=== PATIENT | male | born 1950 | race Caucasian/White ===

== ENCOUNTER 2020-09-10 08:50 | Day surgery (SDC) | payer OTHER ==
[~2020-09-10] VITALS: Ht 170.2 cm; Wt 104.5 kg
[~2020-09-10 08:50] MED LIST: AMLODIPINE BESY10 MG PO; ASPIRIN EC81 MG PO; AVAPRO300 MG PO; CENTRUM SILVER1 EAC6 PO; CHLORTHALIDONE25 MG PO; CLONIDINE HCL0.1 MG PO; CO Q-10300 MG PO; DEPO-TESTO200 MG/1 M IM; GABAPENTIN100 MG PO; GARLIC OIL1000 MG PO; LIPITOR40 MG PO; NABUMETONE750 MG PO; OMEGA 3 1,0001 EACH PO; POTASSIUM CHLO20 ME1 PO; PRILOSEC OTC20 MG PO; PROBIOTIC1 EAC3 PO; SUPER B MAXI C0.4 MG PO; TURMERIC COMPL1 EACH PO; VITAMIN B12-FO1 EACH PO; [UNRECOGNIZED DRUG - OTHER]; [UNRECOGNIZED DRUG - OTHER] PO
[2020-09-10] MEDS ORDERED: HYDROCODON-ACE1 EA11 PO (12:57)
[2020-09-10] MEDS ORDERED: CELECOXIB200 MG PO (12:57)
--- NOTE | 2020-09-10 13:27 | NUR ---
09/10/20 1327 Blanquita Pruitt 1248 PT ARRIVED IN PACU NON RESPONSIVE TO NOXIOUS STIMULI WITH OPA IN PLACE. 1257 PT REACTIVE. OPA REMOVED. 1300 CRYO CUFF PLACED ON R SHOULDER. NO C/O'S. 1315 TAKING SIPS OF WATER. 1325 TO DS. REPORT GIVEN TO BALA.
--- NOTE | 2020-09-10 13:32 | NUR ---
1130 PT BACK TO ROOM FROM PACU AWAKE AND ALERT DENIES PAIN AND NAUSEA. AT BEDSIDE. PT EATING CRACKERS AND JELLO, DRINKING WATER TOLERATES WELL. CRYO CUFF EXPAINED TO HIS SHE VOICED UNDERSTANDING. HE CAN FEEL HIS RT HAND BUT LESS FEELING AT THE ELBOW.
--- NOTE | 2020-09-10 14:36 | NUR ---
1200 PT EATING SOUP AND SANDWITCH TOLERATES WELL. DISCHARGE INSTRUCTIONS GIVEN TO PT AND HIS BOTH VOICED UNDERSTANDING.
--- NOTE | 2020-09-10 15:06 | NUR ---
1430 PT REPORTS READINESS TO GO HOME, HE IS ABLE TO MOVE FINGERS ON RT HAND AND IS ABLE TO FEEL TOUCH, CAP REFILL LESS THAN 1 SECOND, HAND WARM AND PINK, PT REPORTS THE REST OF HIS ARM IS STILL NUMB.
--- NOTE | 2020-09-10 15:17 | NUR ---
1966 LATE ENTERY: PT DID NOT VOID BEFORE GOING, GOT VERBAL OK FROM TO DR GONZALEZ STATING HE CAN GO HOME WITHOUT VOIDING.
--- NOTE | 2020-09-12 08:51 | OR ---
[facility] [address] [place], [place] [address] Signed DATE OF OPERATION: 09/10/2020 SURGEON: Kathe Henry MD PREOPERATIVE DIAGNOSES: 1. Rotator cuff tear, right shoulder. 2. Large lipoma right shoulder. POSTOPERATIVE DIAGNOSES: 1. Rotator cuff tear, right shoulder. 2. Large lipoma right shoulder. PROCEDURES PERFORMED: 1. Right shoulder arthroscopy with rotator cuff repair. 2. Excision of lipoma. RETAIL MANAGER: None. ANESTHESIA: General. BLOOD LOSS: 75 mL. SPECIMEN: The lipomatous mass was sent to pathology. IMPLANTS: Two 4.75 SwiveLock anchors. BRIEF HISTORY: Malika is a 70-year-old gentleman with a large lump on his shoulder and pain with any kind of activity in addition to weakness. Risks and benefits of operative treatment were discussed with him. He elected to proceed. DESCRIPTION OF PROCEDURE: Once consent was obtained, he was taken to the operating room. After adequate anesthesia, he was placed in a beach chair position, all downside pressure points were well padded. The shoulder was prepped and draped in a standard sterile fashion. The Electronically Signed By: KATHE HENRY MD 09/12/20 0851 PATIENT NAME: MALIKA PONCE OPERATIVE REPORT DATE OF : 52 REPORT #: [id number] PHYSICIAN: KATHE HENRY MD PCP: BO GUEVARA PA-C REPORT IS CONFIDENTIAL AND NOT TO BE RELEASED WITHOUT AUTHORIZATION [facility] [address] [place], [place] [address] Signed shoulder was injected with 15 mL 0.25% Marcaine with epinephrine as was subacromial space. The lipoma was somewhat in the way in terms of the anterior lateral portal, so I elected to remove the lipoma first. A 2-inch incision was made anteriorly over the lipomatous mass. This was taken through skin and subcutaneous tissue. There was a thin layer of deltoid over the mass and this was split bluntly. The mass was readily identified and under finger dissection was loosened from the surrounding area with tissue. It was then easily removed with the exception of the inferior portion, which was fairly well attached to the periosteum. We removed the mass and rongeured the bone where this was attached. The wound was copiously irrigated with antibiotic solution. The deltoid was closed with 2-0 Stratafix, the subcutaneous tissue with 2-0 Stratafix, and the skin with 3-0 Monocryl. Attention was then turned to the shoulder and posterior portal was then established and the scope was placed in the shoulder. The anterior portal was then established under an outside-in technique. The biceps was noted to be frayed and flattened, but otherwise intact. The labrum and biceps attachment were intact. Glenohumeral surfaces were intact. There were actually 2 separate tears in the rotator cuff with an intervening 3 or 4 mm piece of tissue. The scope was then withdrawn, placed in subacromial space and the bursa was removed to allow visualization. Once the tear was identified, it was cleaned up and then intervening tissue was removed. The cuff tear was mobilized and easily reducible. The bone of the tuberosity was then cleared of soft tissue and was debrided slightly to decorticate and create a bleeding surface. Two fiber tapes were placed in inverted mattress configuration through the rotator cuff and placed through separate anchors in the tuberosity about 5 mm apart. This reduced the cuff tear to the tuberosity with good stability. The suture ends were cut. The scope was withdrawn. All portals were closed with 3-0 Monocryl and Steri-Strips were applied to all wounds. The wounds were dressed with Allevyn dressing and op sites. He was awakened, taken to the recovery room in satisfactory condition. All sponge, needle, and instrument counts were correct. Kathe Henry MD BA/MODL /[id number] Copies: Electronically Signed By: KATHE HENRY MD 09/12/20 0851 PATIENT NAME: MALIKA PONCE OPERATIVE REPORT DATE OF : 52 REPORT #: [id number] PHYSICIAN: KATHE HENRY MD PCP: BO GUEVARA PA-C REPORT IS CONFIDENTIAL AND NOT TO BE RELEASED WITHOUT AUTHORIZATION [address] [address] Signed ~ Electronically Signed By: KATHE HENRY MD 09/12/20 0851 PATIENT NAME: MALIKA PONCE IRAJ OPERATIVE REPORT DATE OF : 52 REPORT #: [id number] PHYSICIAN: KATHE HENRY MD PCP: BO GUEVARA PA-C REPORT IS CONFIDENTIAL AND NOT TO BE RELEASED WITHOUT AUTHORIZATION
--- NOTE | 2020-09-12 15:40 | PATH ---
[facility] [address] [place], [place] [address] Signed SPECIMEN(S): A RIGHT SHOULDER SPECIMEN SOURCE: A. RIGHT SHOULDER CLINICAL HISTORY: Rotator cuff tear and lipoma FINAL PATHOLOGIC DIAGNOSIS: Soft tissue, right shoulder, excision: - Lobules of mature fibroadipose tissue, consistent with lipoma. NAL:cml:C2NR MICROSCOPIC EXAMINATION: Histologic sections of all submitted blocks are examined by light microscopy. These findings, together with the gross examination, support the pathologic diagnosis. GROSS DESCRIPTION: The specimen, labeled "Malika Ponce," and designated on the requisition "lipoma right shoulder," is received in formalin and consists of a 49 gram portion of yellow-monroy adipose tissue that is 8.6 x 6.4 x 2.1 cm. The specimen is partially surfaced by a transparent membranous tissue. The tissue is inked blue and serially sectioned to reveal a pale yellow homogeneous cut surface. No areas of hemorrhage or necrosis are grossly identified. Radio Board Operator sections are submitted in cassette (A1-A5). FB (under the direct supervision of a pathologist) The Gross Description was prepared using a voice recognition system. The report was reviewed for accuracy; however, sound-alike word errors, addition and/or deletions may occur. If there is any question about this report, please contact Client Services. PERFORMING LABORATORY: The technical component was performed by [employer] [facility], [address] [place] [id number] (Steam Roller Operator: Clarice Nichole MD; CLIA# [id number]). [facility], [address] [address] (CLIA# [id number]). Diagnostician: Neha Cowart MD PATIENT NAME: MALIKA PONCE PATHOLOGY DATE OF : 52 REPORT #: [id number] PHYSICIAN: RAFAEL PATHOLOGY PCP: BO GUEVARA PA-C REPORT IS CONFIDENTIAL AND NOT TO BE RELEASED WITHOUT AUTHORIZATION [address] [address] Signed Pathologist Electronically Signed 09/12/2020 Copies: ~ PATIENT NAME: MALIKA PONCE PATHOLOGY DATE OF : 52 REPORT #: [id number] PHYSICIAN: RAFAEL PATHOLOGY PCP: BO GUEVARA PA-C REPORT IS CONFIDENTIAL AND NOT TO BE RELEASED WITHOUT AUTHORIZATION
== END 2020-09-10 14:50 | disposition home or self-care (01) ==
LOC: DS 08:50
PROVIDERS: ATTEND Specialist
PROC: 0LQ14ZZ Repair Right Shoulder Tendon, Percutaneous Endoscopic Approach (ICD-10-PCS; principal; 2020-09-10 11:30)
DX: M75.101 Unspecified rotator cuff tear or rupture of right shoulder, not specified as traumatic (principal); D17.79 Benign lipomatous neoplasm of other sites; G89.18 Other acute postprocedural pain; Z88.7 Allergy status to serum and vaccine; I10 Essential (primary) hypertension; G47.33 Obstructive sleep apnea (adult) (pediatric); K21.9 Gastro-esophageal reflux disease without esophagitis; Z87.891 Personal history of nicotine dependence
CPT/HCPCS: 00450; 64415; 76942; C1713; J0690; J1100; J1885; J2001; J2250; J2405; J2704; J2795; J3010

== ENCOUNTER 2023-06-07 19:38 | Emergency (ER) | payer MEDICARE, OTHER ==
[~2023-06-07] VITALS: Ht 170.2 cm; Wt 104.3 kg
[~2023-06-07 19:38] MED LIST changes: +CELECOXIB200 MG PO; +GABAPENTIN300 MG PO; +HEALTHYLAX17 GM PO; +HYDROCODON-ACE1 EA11 PO; +LABETALOL HCL300 MG PO; +OXYCONTIN10 MG PO; +XARELTO10 MG PO
[2023-06-07 20:10] LABS: BASOPHILS 0.3 % (0-2); EOSINOPHILS 3.3 % (0-6); HEMATOCRIT 41.1 % (35.0-50.0); HEMOGLOBIN 14.7 g/dL (12.0-18.0); LYMPHOCYTES 15.2 % (24-44); MCH 33.1 (27-36); MCHC 35.7 g/dl (30-36); MCV 92.7 fl (81-99); MONOCYTES 6.4 % (0-12); NEUTROPHILS 74.8 % (39-80); PLATELET COUNT 248 K/uL (140-440); RBC 4.44 M/ul (4.3-5.7); RDW 12.9 (10.5-15.0)
[2023-06-07] MEDS ORDERED: FLOMAX0.4 MG PO (20:27)
[2023-06-07 20:41] LABS: ALBUMIN 3.8 g/dL (3.4-5.0); ALBUMIN/GLOBULIN RATIO 1.27 (1.1-2.4); ANION GAP 16.5 (7-21); BILIRUBIN, TOTAL 0.8 ng/dL (0.2-1.0); BUN/CREATININE RATIO 11.11 (6.0-28.6); CALCIUM 8.8 mg/dL (8.5-10.1); CREATININE, SERUM 0.81 mg/dL (0.70-1.30); POTASSIUM 3.5 mmol/L (3.5-5.1); PROTEIN, TOTAL 6.8 g/dL (6.4-8.2)
[2023-06-07 20:45] LABS: INFLUENZA B NAA NEGATIVE (NEGATIVE); RESPIRATORY SYNCYTIAL VIR NAA NEGATIVE (NEGATIVE)
[2023-06-07 22:28] VITALS: BP 149/89
== END 2023-06-07 22:35 | disposition home or self-care (01) ==
LOC: ED 19:38
PROVIDERS: Family Medicine
DX: J40 Bronchitis, not specified as acute or chronic (principal); I71.43 Infrarenal abdominal aortic aneurysm, without rupture; Z20.822 Contact with and (suspected) exposure to COVID-19; Z87.891 Personal history of nicotine dependence; Z88.7 Allergy status to serum and vaccine; Z88.8 Allergy status to other drugs, medicaments and biological substances; Z79.899 Other long term (current) drug therapy
CPT/HCPCS: 36415; 70491; 71250; 80053; 83880; 84484; 85025; 85379; 87502; J2930; Q9967; U0002

== ENCOUNTER 2023-12-31 07:05 | Day surgery (SDC) | payer MEDICARE, OTHER ==
[2023-12-23 11:08] VITALS: BP 123/72
[~2023-12-31] VITALS: Ht 170.2 cm; Wt 103.2 kg
[~2023-12-31 07:05] MED LIST changes: +BRAIN MIGHT-DH1 EACH PO; +CEFAZOLIN SODIUM 2 GM/20 ML SYR IV SCH; +FLOMAX0.4 MG PO; +IBLOOD GLUCOSE TEST STRIP 1 EA TEST VI PRN; +LACTATED RINGER'S 1,000 ML IV SCH; +LIDOCAINE HCL 1% 5 ML SDV INJ ONE; +MIDAZOLAM HCL 5 MG/5 ML VIAL IV PRN; +SENIOR TABS1 EACH PO; +fentaNYL citrate 100 MCG/2 ML VIAL IV PRN
[2023-12-31 07:19] VITALS: BP 120/57
--- NOTE | 2023-12-31 07:30 | NUR ---
PT NOT AVAILABLE FOR VISIT. PROVIDED PRAYER.
[2023-12-31] MEDS ORDERED: LIDOCAINE HCL 2% 5 ML SDV ONE (07:55)
[2023-12-31] MEDS ORDERED: propofoL 200 MG/20 ML VIAL ONE ×2 (07:55→08:15)
--- NOTE | 2023-12-31 08:40 | NUR ---
12/31/23 0840 Mayur Byers 0831: PT ARRIVED TO PACU VIA STRETCHER. REPORT TAKEN FROM EM MCKENNA. PT NON AROUSABLE AT THIS TIME. PT ON 2L NC WITH SATS IN THE MID 90'.S. 0835: PT REMAINS NON AROUSABLE AND ON 2L NC AT THIS TIME. 0840: MD AT BEDSIDE.
--- NOTE | 2023-12-31 09:34 | OR ---
[facility] [address] [place], [place] [address] Signed DATE OF OPERATION: 12/31/2023 SURGEON: Jimmy Meier MD PREOPERATIVE DIAGNOSIS: Screening. POSTOPERATIVE DIAGNOSES: 1. 7 mm polyp distal right colon. 2. Minimal internal hemorrhoids. PROCEDURE: Colonoscopy with hot biopsy. ESTIMATED BLOOD LOSS: None. INDICATIONS: Malika is a 73-year-old gentleman, asked to see me for a followup screening colonoscopy. I helped him in 2011 at the age of 61 with his initial screening colonoscopy. This was unremarkable. He currently has no lower GI complaints. There is no family history of colon cancer or polyps. I had given him a pamphlet in the office on colonoscopy. We reviewed the nature of the test. There is risk including, but not limited to gas bloating, crampy abdominal pain, bleeding, perforation requiring surgery, and missed diagnosis. We also reviewed the written instructions for the bowel prep line by line. We also went through his long list of medications. Malika has family history of rather significant coronary artery disease. He is also on multiple blood pressure medications. We had used monitored anesthesia care previously and we once again recommended that to him. That works out very well for Malika as he cannot tolerate large swings in his blood pressure. In that regard, he did require preoperative blood work and EKG. He also understands an adult person has to take him home afterwards. He had expressed understanding and wished to proceed. PROCEDURE IN DETAIL: Malika was taken into our endoscopy suite and placed in the left lateral decubitus position. He was given monitored anesthesia care with propofol infusion per our nurse charge manager. A digital rectal exam was performed. He had no external hemorrhoids. There was good sphincter tone. There were no masses. The adult colonoscope was introduced and advanced all around into the cecum under direct visualization of the camera without difficulty. He had a little bit of liquid stool in the base of the cecum Electronically Signed By: JIMMY MEIER MD 12/31/23 0934 PATIENT NAME: MALIKA PONCE OPERATIVE REPORT DATE OF : 52 REPORT #: [id number] PHYSICIAN: JIMMY MEIER MD PCP: MICHELLE GUEVARA PA-C REPORT IS CONFIDENTIAL AND NOT TO BE RELEASED WITHOUT AUTHORIZATION [facility] [address] [place], [place] [address] Signed that I could not quite suction out completely. We could easily see the ileocecal valve. The scope was then slowly withdrawn. We biopsied and destroyed the polyp in his distal right colon completely with the hot biopsy forceps. There was no diverticulosis. In the rectum, he had just very minimal internal hemorrhoids on retroflexion of the scope. After this, the gas was suctioned out and the colonoscope removed. Malika tolerated the procedure quite well. RECOMMENDATIONS: I will see Malika back in my office in 7 to 14 days to review his pathology results. MD JERMAIN Jasmine/MARIBELLL /[id number] cc: MD Michelle Jasmine PA-C Copies: JIMMY MEIER MD, CHLOE K PA-C ~ Electronically Signed By: JIMMY MEIER MD 12/31/23 0934 PATIENT NAME: MALIKA PONCE OPERATIVE REPORT DATE OF : 52 REPORT #: [id number] PHYSICIAN: JIMMY MEIER MD PCP: MICHELLE GUEVARA PA-C REPORT IS CONFIDENTIAL AND NOT TO BE RELEASED WITHOUT AUTHORIZATION
--- NOTE | 2023-12-31 09:59 | NUR ---
0945 PT RETURNED DS FROM PACU, HE IS ALERT AND AWAKE, HE REPORTS SOME CRAMPING AND MILD PAIN. PT PLACED IN POSITION TO TRY TO PASS GAS. 1000 PT REPORTS HE PASSED A SMALL AMOUT OF GAS. PT AMBULATED TO BATHROOM TO SIT ON TOILET HE WAS ABLE TO PASS GAS WHILE SITTING ON TOILET.
[2023-12-31] MEDS ORDERED: SOD PHOSPHATE/SOD BIPHOSPHATE 132 ML BTL PR ONE (10:00)
--- NOTE | 2023-12-31 10:11 | NUR ---
PT IS PASSING GAS REGULARLY, SPOKE WITH DR MEIER HE STATES LONG AT PT IS PASSING GAS IS NOT UNCOMFORTABLE HE DOES NOT NEED ENEMA. ORDER FOR ENEMA CANCELED
[2023-12-31 10:20] VITALS: BP 126/75
--- NOTE | 2023-12-31 10:21 | NUR ---
PT BACK IN HIS ROOM SITTING AT BED SIDE TAKING SIPS OF WATER TOLERATES WELL.
--- NOTE | 2023-12-31 10:27 | NUR ---
PT AMBULATED BACK TO BATHROOM HE IS ABLE TO PASS GAS VERY LOUDLY AGAIN. HE REPORTS CRAMPING IS BETTTER. HE DENIES NAUSEA.
--- NOTE | 2023-12-31 10:46 | NUR ---
1030 PT REPORTS READINESS TO GO HOME DISCHARGE INSTRUCTIONS GIVEN TO PT AND BOTH VOICED UNDERSTANDING
--- NOTE | 2024-01-05 16:53 | PATH ---
[facility] [address] [facility] [place], [place] [address] Signed SPECIMEN(S): A DISTAL ASCENDING POLYP SPECIMEN SOURCE: A. DISTAL ASCENDING POLYP CLINICAL HISTORY: Screening FINAL PATHOLOGIC DIAGNOSIS: Distal ascending polyp: - Tubular adenoma (one fragment). JVR:clv MICROSCOPIC EXAMINATION: Histologic sections of all submitted blocks are examined by light microscopy. These findings, together with the gross examination, support the pathologic diagnosis. GROSS DESCRIPTION: The specimen, labeled and designated "Kaitlin, distal ascending polyp," is received in formalin and consists of one monroy soft tissue fragment, 0.3 cm. Entirely submitted in (A1). VB (under the direct supervision of a pathologist) The Gross Description was prepared using a voice recognition system. The report was reviewed for accuracy; however, sound-alike word errors, addition and/or deletions may occur. If there is any question about this report, please contact Client Services. PERFORMING LABORATORY: Technical component was performed by [employer], [address] [place] [id number] (CLIA# [id number]). Professional interpretation was performed by [facility], [address] [place] [id number] (CLIA#: [id number]). Diagnostician: Shahbaz Walter MD Pathologist Electronically Signed 01/05/2024 Copies: PATIENT NAME: MALIKA PONCE PATHOLOGY DATE OF : 52 REPORT #: [id number] PHYSICIAN: RAFAEL PATHOLOGY PCP: BO GUEVARA PA-C REPORT IS CONFIDENTIAL AND NOT TO BE RELEASED WITHOUT AUTHORIZATION [address] [address] Signed ~ PATIENT NAME: MALIKA PONCE PATHOLOGY DATE OF : 52 REPORT #: [id number] PHYSICIAN: RAFAEL PATHOLOGY PCP: BO GUEVARA PA-C REPORT IS CONFIDENTIAL AND NOT TO BE RELEASED WITHOUT AUTHORIZATION
== END 2023-12-31 10:35 | disposition home or self-care (01) ==
LOC: DS 07:05
PROVIDERS: ATTEND Colon & Rectal Surgery
PROC: 0DBE8ZX Excision of Large Intestine, Via Natural or Artificial Opening Endoscopic, Diagnostic (ICD-10-PCS; principal; 2023-12-31 08:15)
DX: Z12.11 Encounter for screening for malignant neoplasm of colon (principal); D12.2 Benign neoplasm of ascending colon; K64.8 Other hemorrhoids; I10 Essential (primary) hypertension; E78.5 Hyperlipidemia, unspecified; K21.9 Gastro-esophageal reflux disease without esophagitis; N40.0 Benign prostatic hyperplasia without lower urinary tract symptoms; E66.9 Obesity, unspecified; Z68.36 Body mass index [BMI] 36.0-36.9, adult; Z82.49 Family history of ischemic heart disease and other diseases of the circulatory system; Z88.7 Allergy status to serum and vaccine; Z79.899 Other long term (current) drug therapy
CPT/HCPCS: 00812; 80048; 88305; J0690; J2001; J2704; J7121